=== PATIENT | female | born 1970 | race Caucasian/White ===

== ENCOUNTER 2021-07-22 13:21 | Emergency (ER) | payer BC ==
[~2021-07-22] VITALS: Ht 175.3 cm; Wt 77.1 kg
[2021-07-22] MEDS ORDERED: TESSALON PERLE100 MG PO (13:37)
[2021-07-22] MEDS ORDERED: PROAIR HFA8.5 GM INH (13:37)
[2021-07-22] MEDS ORDERED: ONDANSETRON HCL4 M2 PO (13:37)
[2021-07-22] MEDS ORDERED: APAP W/CODEINE1 TA2 PO (13:37)
[2021-07-22 13:45] VITALS: BP 132/65
== END 2021-07-22 13:45 | disposition home or self-care (01) ==
LOC: M.ERS 13:21
DX: U07.1 COVID-19 (principal)

== ENCOUNTER 2021-08-29 23:25 | Emergency (ER) | payer BC ==
[~2021-08-29] VITALS: Ht 175.3 cm; Wt 81.7 kg
[~2021-08-29 23:25] MED LIST: APAP W/CODEINE1 TA2 PO; ONDANSETRON HCL4 M2 PO; PROAIR HFA8.5 GM INH; TESSALON PERLE100 MG PO
[2021-08-29 23:43] LABS: URINE BILIRUBIN NEGATIVE (Negative); URINE BLOOD 3+ (Negative); URINE CLARITY SL CLOUDY; URINE COLOR YELLOW; URINE GLUCOSE-RANDOM NEGATIVE (Negative); URINE KETONES NEGATIVE (Negative); URINE LEUKOCYTES-REFLEX 1+ (Negative); URINE NITRITE-REFLEX NEGATIVE (Negative); URINE PROTEIN 2+ (Negative); URINE UROBILINOGEN 0.2 E.U./dl (0.2-1.0)
[2021-08-29 23:51] LABS: BACTERIA-REFLEX >30 Many /HPF (None Seen); CASTS None Seen /LPF (None Seen); CRYSTALS None Seen /LPF (None Seen); MUCUS 0-3 Light strn/LPF (None Seen); SQUAMOUS 4-10 Moderate /LPF (0-3); TRANSITIONAL EPITHEL CELL 0-3 Few /LPF (None Seen); URINE RBC >20 Many /HPF (0-2); URINE WBC-REFLEX >25 Many /HPF (0-5); WBC CLUMPS Moderate (None Seen)
[2021-08-30] MEDS ORDERED: PYRIDIUM200 MG PO (02:35)
[2021-08-30] MEDS ORDERED: CEPHALEXIN500 MG PO (02:35)
[2021-08-30 02:44] VITALS: BP 145/81
== END 2021-08-30 02:44 | disposition home or self-care (01) ==
LOC: M.ERS 23:25
PROVIDERS: Personal Emergency Response Attendant
DX: N39.0 Urinary tract infection, site not specified (principal); R31.9 Hematuria, unspecified